=== PATIENT | female | born 1960 | race African-American/Black ===

== ENCOUNTER 2024-06-21 08:33 | Emergency (ER) | payer MEDICARE, MEDICAID ==
[~2024-06-21] VITALS: Ht 160 cm; Wt 49.5 kg
[2024-06-21] MEDS: cloNIDine HCL 0.1 MG TAB PO ONE (09:14)
[2024-06-21 09:17] VITALS: PULSE 55; RESP 16; O2SAT 99
[2024-06-21] MEDS ORDERED: AZIT1POW PO (10:06)
[2024-06-21 10:20] VITALS: BP 149/107; PULSE 100; RESP 20; TEMP 98.5; O2SAT 98
== END 2024-06-21 10:23 | disposition home or self-care (01) ==
LOC: ER 08:33
DX: J20.9 Acute bronchitis, unspecified (principal); I16.0 Hypertensive urgency; I10 Essential (primary) hypertension; J44.9 Chronic obstructive pulmonary disease, unspecified; I25.2 Old myocardial infarction; F17.210 Nicotine dependence, cigarettes, uncomplicated; F12.10 Cannabis abuse, uncomplicated
CPT/HCPCS: 71046; 93005